=== PATIENT | female | born 1980 | race Caucasian/White ===

== ENCOUNTER 2016-12-08 10:20 | Emergency (ER) | payer OTHER ==
[~2016-12-08] VITALS: Ht 170.2 cm; Wt 77.1 kg
[~2016-12-08 10:20] MED LIST: EFFEXOR XR75 MG PO; ESKALITH300 M3 PO; ZYPREXA10 MG PO
[2016-12-08 10:25] VITALS: BP 111/71
--- NOTE | 2016-12-08 10:25 | NUR ---
PATIENT PRESENTS TO ED WITH C/O DIZZINESS . PT STATES THE DIZZINESS IS INTERMITTENT AND STARTED 2 WEEKS AGO. PT DENIES ANY FAINTING OR LOC . DENIES N/V/D; SKIN IS PINK/WARM/DRY; AAOX4 WITH EVEN AND STEADY GAIT; LUNGS CLEAR BL; HR EVEN AND REGULAR; PT DENIES ANY FEVER, CP, SOB, OR COUGH AT THIS TIME; PATIENT STATES PAIN OF 0/10 AT THIS TIME; VSS; PATIENT POSITIONED FOR COMFORT; HOB ELEVATED; BEDRAILS UP X2; BED DOWN. ER MD MADE AWARE OF PT STATUS.
--- NOTE | 2016-12-08 11:15 | NUR ---
Gwen AT BEDSIDE.
--- NOTE | 2016-12-08 12:50 | NUR ---
Patient discharged with v/s stable. Written and verbal after care instructions given and explained. Patient verbalized understanding. Ambulatory with steady gait. All questions addressed prior to discharge. Advised to follow up with PMD.
[2016-12-08 12:51] VITALS: BP 121/74
== END 2016-12-08 12:50 | disposition home or self-care (01) ==
LOC: MED 10:20
DX: E03.9 Hypothyroidism, unspecified (principal); I10 Essential (primary) hypertension; F17.200 Nicotine dependence, unspecified, uncomplicated

== ENCOUNTER 2019-02-20 10:24 | Inpatient (IN) | payer OTHER ==
[~2019-02-20] VITALS: Ht 170.2 cm; Wt 98.5 kg
[~2019-02-20 10:24] MED LIST changes: -EFFEXOR XR75 MG PO; +ESK300 PO; -ESKALITH300 M3 PO; +OLAN10TA PO; +VENL75CE5 PO; -ZYPREXA10 MG PO
[2019-02-20 10:25] VITALS: BP 128/119
--- NOTE | 2019-02-20 10:35 | NUR ---
BIB SELF. AAO X4 C/O SOB & MIRELLA EYES SWELLING X 3 WEEKS . DENIES PAIN. SEEN BY PCP 02/06/19 FOR GENERALIZED EDEMA ,COPD & REFERRED TO ER. DIAMOND BRISK 3 MM. FULL CLEAR SPEECH. PT DENIES BLURRED VISION, FEVER, N/V. PT HAS STEADY GAIT. HOB UP. BED SIDE RAILS UP X1. ON LOW BED POSITION, LOCKED. ER TO EVALUATE PT.
--- NOTE | 2019-02-20 11:05 | NUR ---
DR MCKINNON AT BEDSIDE FOR PT EVAL
[2019-02-20 11:38] LABS: BASOPHILS # (AUTO) 0.1 K/uL (0.00-0.22); BASOPHILS % (AUTO) 2.3 % (0.0-2.0); EOSINOPHILS # (AUTO) 0.1 K/uL (0-0.4); EOSINOPHILS % (AUTO) 3.5 % (0.0-4.0); HEMATOCRIT 26.2 % (36-48); HEMOGLOBIN 8.2 g/dL (12.0-16.0); LYMPHOCYTES # (AUTO) 0.5 K/uL (2.5-16.5); LYMPHOCYTES % (AUTO) 17.4 % (20.5-51.1); MEAN CORPUSCULAR HEMOGLOBIN 25 pg (27-31); MEAN CORPUSCULAR HGB CONC 32 g/dL (33-37); MEAN CORPUSCULAR VOLUME 78.5 fL (80-94); MONOCYTES # (AUTO) 0.1 K/uL (0.8-1.0); MONOCYTES % (AUTO) 3.8 % (1.7-9.3); NEUTROPHILS # (AUTO) 2.2 K/uL (1.8-7.7); PLATELET COUNT (AUTO) 300 K/uL (140-450); RED BLOOD CELL COUNT(AUTO) 3.33 MIL/uL (4.20-5.40); RED CELL DISTRIBUTION WIDTH 18.6 % (11.6-13.7)
[2019-02-20 11:44] LABS: ANION GAP 9.8 (8-16); CARBON DIOXIDE 30.2 mmol/L (21-32); CREATININE 1.2 mg/dL (0.6-1.3)
[2019-02-20 11:49] LABS: ALBUMIN 4.1 g/dL (3.4-5.0); PROTHROMBIN TIME 10.8 secs (10.8-13.4); TOTAL BILIRUBIN 0.2 mg/dL (0.0-1.0)
--- NOTE | 2019-02-20 11:55 | NUR ---
VITAL SIGN CHECKED. WITHIN NORMAL RANGE. RESP EVEN AND UNLABORED. WILL CONTINUE TO MONITOR. Addendum: 02/21/19 at 0139 by Alayna Puga RN WRONG TIME.
[2019-02-20 11:57] LABS: THYROID STIMULATING HORMONE 149.04 uIU/mL (0.34-3.74)
[2019-02-20 12:06] LABS: APPEARANCE,URINE CLOUDY (CLEAR); BILIRUBIN,URINE NEGATIVE (NEGATIVE); BLOOD, URINE 3+ (NEGATIVE); COLOR,URINE RED (YELLOW); LEUKOCYTE ESTERASE ,URINE TRACE (NEGATIVE); NITRITE, URINE NEGATIVE (NEGATIVE); PH,URINE 6.5 (5.0-9.0); UGLUCOSE NEGATIVE (NEGATIVE)
[2019-02-20 12:23] LABS: RBC,URINE TOO NUMEROUS TO COUN /HPF (0-5)
[2019-02-20 12:24] LABS: WBC,URINE 0-5 /HPF (0-5)
--- NOTE | 2019-02-20 12:52 | NUR ---
multiple attempts to insert iv , unsuccessful---md notified
[2019-02-20] MEDS ORDERED: ONDANSETRON 4 MG/2 ML VIAL IVP PRN (13:25)
[2019-02-20] MEDS ORDERED: HYDROcodone/APAP 5/325 MG 1 TAB TAB PO PRN (13:25)
[2019-02-20] MEDS ORDERED: ALBUTEROL 0.083% 2.5 MG/3 ML NEBU IH PRN (13:25)
[2019-02-20] MEDS ORDERED: MORPHINE SULFATE 4 MG/ML SYR IVP PRN (13:25)
[2019-02-20] MEDS ORDERED: ACETAMINOPHEN 325 MG TAB PO PRN (13:25)
--- NOTE | 2019-02-20 13:47 | NUR ---
PT TAKEN TO THE FLOOR VIA WHEELCHAIR BY HUGH VELA AT THIS TIME
[2019-02-20] MEDS ORDERED: LEVOTHYROXINE 0.1 MG TAB PO SCH (13:53)
--- NOTE | 2019-02-20 13:58 | NUR ---
RECEIVED BED SIDE REPORT FROM SAP BI DEVELOPER. PT TRANSPORTED TO UNIT VIA WHEELCHAIR. ON 2L NC, IN NO RESPIRATORY DISTRESS. PT A/O X4, L AC 24G HEP LOCK, SKIN INTACT, PT STATES SHE IS NOT IN PAIN. BED ALARM ON, WILL CONTINUE TO MONITOR
--- NOTE | 2019-02-20 13:58 | NUR ---
Patient will be admitted to care of Dr Ott. Admited to Med Surg. Will go to room 119 A. Belongings list completed. Report to HUGH Miranda.
[2019-02-20 14:22] VITALS: BP 123/90
--- NOTE | 2019-02-20 16:45 | NUR ---
US ABDOMEN BEING DONE AT BEDSIDE. WILL CONTINUE TO MONITOR
--- NOTE | 2019-02-20 17:15 | NUR ---
CAME TO SPEAK TO PT. ORDERED LASIX AND A VENOUS DOPPLER, ECHO AND US OF THE LIVER TO BE DONE. WILL CONTINUE TO MONITOR
--- NOTE | 2019-02-20 18:06 | NUR ---
PT IS SLEEPING RIGHT NOW COMFORTABLY. CALL LIGHT WITHIN REACH, BED ALARM ON, WILL CONTINUE TO MONITOR
--- NOTE | 2019-02-20 19:39 | NUR ---
ENDORSED PT TO PANEL MACHINE OPERATOR RN. PT IN STABLE CONDITION.
--- NOTE | 2019-02-20 19:40 | NUR ---
RECEIVED BEDSIDE REPORT FROM DAY SHIFT NURSE. NO SOB OR ANY RESP DISTRESS NOTED ON 2L NC. PT A/O X4, IV SITE ON L AC 24G SL, SKIN INTACT, WARM AND DRY TO TOUCH. DENIED ANY PAIN. STANDARD PRECAUTION IN PLACE, BED IN LOW POSITION, CALL LIGHT WITHIN REACH. WILL CONTINUE TO MONITOR
[2019-02-20] MEDS: OLANZapine 5 MG TAB PO SCH (20:48)
--- NOTE | 2019-02-20 20:48 | NUR ---
GIVEN OLANZAPINE MD ORDERED. D/C LASIX AND IV FLUID, NS @ 50MLS/HR ORDERED BY DR. LENA Ross HANG NS FLUID AND NOT GIVEN LASIX MD ORDERED. WILL CONTINUE TO MONITOR.
--- NOTE | 2019-02-20 20:53 | NUR ---
NOTIFIED DR. PAREDES AND RN. SANCHEZ ON CRITICAL ECHO FINDINGS.
[2019-02-20] MEDS ORDERED: FUROSEMIDE 40 MG/4 ML VIAL IVP SCH (21:00)
[2019-02-20] MEDS: NACL 0.9% 1,000 ML IV SCH (21:10)
--- NOTE | 2019-02-20 21:45 | NUR ---
RECEIVED PATIENT ON ROOM AIR, PULSE OX SAT 99%. PATIENT DENIES SOB AT THIS TIME. PRN BREATHING TREATMENT NOT INDICATED. NO RESPIRATORY DISTRESS NOTED. WILL CONTINUE TO MONITOR.
[2019-02-20] MEDS ORDERED: IBUPROFEN 600 MG TAB ONE (22:18)
[2019-02-20] MEDS ORDERED: COLCHICINE 0.6 MG TAB PO SCH (23:00)
[2019-02-20] MEDS ORDERED: IBUPROFEN 600 MG TAB PO SCH (23:00)
--- NOTE | 2019-02-20 23:20 | NUR ---
GIVEN MOTRIN AND COLCHICINE DRBryon ORDERED. PT TOLERATED WELL. WILL CONTINUE TO MONITOR.
--- NOTE | 2019-02-20 23:55 | NUR ---
VITAL SIGN CHECKED. WITHIN NORMAL RANGE. RESP EVEN AND UNLABORED. WILL CONTINUE TO MONITOR.
[2019-02-21] VITALS: BP 131/59
--- NOTE | 2019-02-21 02:15 | NUR ---
PT SLEEPING IN BED. NO ACUTE DISTRESS NOTED. BREATHING EVEN AND UNLABORED. BED IN LOW POSITION, CALL LIGHT WITHIN REACH.
[2019-02-21 04:00] VITALS: BP 123/77
--- NOTE | 2019-02-21 04:00 | NUR ---
VS CHECKED. WITHIN NORMAL RANGE. PT AMBULATE TO BATHROOM TO URINATE AFTER VS CHECKED. ASSIST PT TO BACK TO BED. COVER PT WITH BLANKET. BED IN LOW POSITION. CALL LIGHT WITHIN REACH.
[2019-02-21] MEDS: LEVOTHYROXINE 0.1 MG TAB PO SCH (05:48)
--- NOTE | 2019-02-21 05:48 | NUR ---
GIVEN SYNTHROID MD ORDERED. PT TOLERATED WELL.
[2019-02-21 06:26] LABS: BASOPHILS # (AUTO) 0.1 K/uL (0.00-0.22); BASOPHILS % (AUTO) 1.5 % (0.0-2.0); EOSINOPHILS # (AUTO) 0.1 K/uL (0-0.4); EOSINOPHILS % (AUTO) 2.9 % (0.0-4.0); HEMATOCRIT 27.5 % (36-48); HEMOGLOBIN 8.5 g/dL (12.0-16.0); LYMPHOCYTES # (AUTO) 0.8 K/uL (2.5-16.5); MEAN CORPUSCULAR HEMOGLOBIN 24 pg (27-31); MEAN CORPUSCULAR HGB CONC 31 g/dL (33-37); MEAN CORPUSCULAR VOLUME 78.7 fL (80-94); MONOCYTES # (AUTO) 0.2 K/uL (0.8-1.0); MONOCYTES % (AUTO) 5.4 % (1.7-9.3); NEUTROPHILS # (AUTO) 2.6 K/uL (1.8-7.7); NEUTROPHILS % (AUTO) 69.2 % (42.2-75.2); PLATELET COUNT (AUTO) 277 K/uL (140-450); RED BLOOD CELL COUNT(AUTO) 3.49 MIL/uL (4.20-5.40); RED CELL DISTRIBUTION WIDTH 18.8 % (11.6-13.7); WHITE BLOOD COUNT (AUTO) 3.7 K/uL (4.8-10.8)
[2019-02-21 06:33] LABS: ANION GAP 11.2 (8-16); CARBON DIOXIDE 29.6 mmol/L (21-32); POTASSIUM 3.8 mmol/L (3.5-5.1)
[2019-02-21 06:40] LABS: MAGNESIUM 2.2 mg/dL (1.8-2.4); PHOSPHORUS 2.8 mg/dL (2.5-4.9)
--- NOTE | 2019-02-21 07:20 | NUR ---
ENDORSED PT TO DAY SHIFT NURSE. PT IN STABLE CONDITION.
--- NOTE | 2019-02-21 07:22 | NUR ---
RECEIVED BED SIDE REPORT FROM TRANS ROUTER RN. PT A/O X3, PT ABLE TO AMBULATE WITH A STEADY GAIT, HAS NS RUNNING AT 50CC/HR. WILL CONTINUE TO MONITOR
[2019-02-21 08:00] VITALS: BP 133/95
--- NOTE | 2019-02-21 08:02 | NUR ---
PATIENT HAS BEEN SCREENED AND CATEGORIZED MODERATE NUTRITION RISK. PATIENT WILL BE SEEN WITHIN 3-5 DAYS OF ADMISSION. 02/23/[address]
[2019-02-21] MEDS: OLANZapine 5 MG TAB PO SCH ×2 (09:03→20:42)
[2019-02-21] MEDS: IBUPROFEN 600 MG TAB PO SCH ×3 (09:04→18:55)
[2019-02-21] MEDS: COLCHICINE 0.6 MG TAB PO SCH ×2 (09:04→20:42)
[2019-02-21] MEDS: VENLAFAXINE XR 75 MG CAPER PO SCH (09:04)
[2019-02-21] MEDS: ENOXAPARIN 40 MG/0.4 ML SYR SUBQ SCH (09:05)
[2019-02-21 12:00] VITALS: BP 133/95
--- NOTE | 2019-02-21 13:14 | NUR ---
PT RESTING COMFORTABLY IN BED. DENIES CHEST PAIN, PALPITATIONS OR SOB. WILL CONTINUE TO MONITOR.
[2019-02-21 16:00] VITALS: BP 122/84
[2019-02-21] MEDS: NACL 0.9% 1,000 ML IV SCH (17:10)
--- NOTE | 2019-02-21 19:15 | NUR ---
ENDORSED PT TO BASE BRANDER RN. PT IN STABLE CONDITION
--- NOTE | 2019-02-21 19:20 | NUR ---
RECEIVED PT SLEEPING, EASILY AROUSABLE, AA0X3, ABLE TO MAKE NEEDS KNOWN, VITAL SIGNS STABLE, SR/SB ON TELE, ASYMPTOMATIC, DENIES ANY PAIN OR SOB, IVF INFUSING WELL, PLAN OF CARE DISCUSSED, SAFETY MEASURES IN PLACE, CALL LIGHT WITHIN REACH.
[2019-02-21 20:00] VITALS: BP 132/78
--- NOTE | 2019-02-21 20:55 | NUR ---
DR Ivan PAREDES IS HERE AND SAW THE PT, WITH NEW ORDER FOR REPEAT ECHO FOR TOMORROW.
--- NOTE | 2019-02-21 21:28 | NUR ---
PT AMBULATED TO BR WITH STEADY GAIT, VOIDED FREELY, PT BACK TO BED, DENIES ANY PAIN,DIZZINESS OR SOB, ALL NEEDS ATTENDED.
[2019-02-22] VITALS: BP 124/81
--- NOTE | 2019-02-22 | NUR ---
PT SLEEPING, EASILY AROUSABLE TO VERBAL STIMULI, VITAL SIGNS STABLE, SB ON TELE, ASYMPTOMATIC, DENIES ANY PAIN AND SOB, IVF INFUSING WELL, CONTINUE TO MONITOR CLOSELY.
[2019-02-22 04:00] VITALS: BP 130/76
--- NOTE | 2019-02-22 04:00 | NUR ---
PT AWAKE, JUST GOT BACK FROM BR, VITAL SIGNS STABLE, DENIES ANY PAIN OR SOB, IVF INFUSING WELL, MONITORED CLOSELY.
[2019-02-22] MEDS: LEVOTHYROXINE 0.1 MG TAB PO SCH (05:54)
--- NOTE | 2019-02-22 06:05 | NUR ---
DUE SYNTHROID PO GIVEN, NO BM SINCE TUESDAY, PRUNE JUICE PROVIDED, TOLERATED WELL, PT DENIES ANY PAIN, LIGHTHEADEDNESS OR SOB, IVF INFUSING WELL, MONITORED CLOSELY.
--- NOTE | 2019-02-22 07:18 | NUR ---
PT AWAKE, NO DISTRESS NOTED, REPORT GIVEN TO HUGH CHRISTIANSON FOR CONTINUITY OF CARE.
--- NOTE | 2019-02-22 07:19 | NUR ---
RECEIVED BEDSIDE REPORT FROM HUGH TOMLINSON. PT STABLE, AWAKE, ALERT AND ORIENTED X4. NO SIGNS OF DISTRESS NOTED. DENIES PAIN OR SOB. NO REDNESS, SWELLING, OR INFLAMMATION NOTED ON IV SITE. CALL PETTY WITHIN REACH. BED IN LOWEST POSITION. SAFETY MEASURES IN PLACE. PLAN OF CARE REVIEWED.
[2019-02-22 07:40] LABS: BASOPHILS # (AUTO) 0.1 K/uL (0.00-0.22); BASOPHILS % (AUTO) 1.4 % (0.0-2.0); EOSINOPHILS # (AUTO) 0.1 K/uL (0-0.4); EOSINOPHILS % (AUTO) 2.1 % (0.0-4.0); HEMATOCRIT 26.5 % (36-48); HEMOGLOBIN 8.2 g/dL (12.0-16.0); LYMPHOCYTES # (AUTO) 0.7 K/uL (2.5-16.5); LYMPHOCYTES % (AUTO) 15.1 % (20.5-51.1); MEAN CORPUSCULAR HEMOGLOBIN 24 pg (27-31); MEAN CORPUSCULAR HGB CONC 31 g/dL (33-37); MEAN CORPUSCULAR VOLUME 79.2 fL (80-94); MONOCYTES # (AUTO) 0.2 K/uL (0.8-1.0); MONOCYTES % (AUTO) 3.9 % (1.7-9.3); NEUTROPHILS # (AUTO) 3.4 K/uL (1.8-7.7); NEUTROPHILS % (AUTO) 77.5 % (42.2-75.2); PLATELET COUNT (AUTO) 293 K/uL (140-450); RED BLOOD CELL COUNT(AUTO) 3.35 MIL/uL (4.20-5.40); RED CELL DISTRIBUTION WIDTH 18.7 % (11.6-13.7); WHITE BLOOD COUNT (AUTO) 4.4 K/uL (4.8-10.8)
[2019-02-22 08:00] VITALS: BP 132/85
[2019-02-22 08:19] LABS: ANION GAP 13.7 (8-16); CARBON DIOXIDE 27.2 mmol/L (21-32); POTASSIUM 3.9 mmol/L (3.5-5.1)
[2019-02-22 08:23] LABS: PHOSPHORUS 2.9 mg/dL (2.5-4.9)
--- NOTE | 2019-02-22 09:34 | NUR ---
PT C/O NOT HAVING BM FOR 4 DAYS. RECEIVED TELEPHONE ORDERS FROM DR PIÑA FOR COLACE 100MG PO BID, AND SENNA 2 TABS (8.6 MG EACH TAB) PO QHS. WILL PUT IN ORDER.
[2019-02-22] MEDS: VENLAFAXINE XR 75 MG CAPER PO SCH (10:12)
[2019-02-22] MEDS: COLCHICINE 0.6 MG TAB PO SCH ×2 (10:12→20:21)
[2019-02-22] MEDS: IBUPROFEN 600 MG TAB PO SCH ×3 (10:12→17:22)
[2019-02-22] MEDS: OLANZapine 5 MG TAB PO SCH ×2 (10:12→20:21)
[2019-02-22] MEDS: ENOXAPARIN 40 MG/0.4 ML SYR SUBQ SCH (10:15)
--- NOTE | 2019-02-22 10:20 | NUR ---
ADMINISTERED SCHEDULED MEDICATIONS, PT TOLERATED WELL. NO OTHER NEEDS AT THIS TIME.
[2019-02-22 12:00] VITALS: BP 155/84
--- NOTE | 2019-02-22 12:10 | NUR ---
VITAL SIGNS TAKEN, PT STABLE. PT DENIES ANY PAIN OR SOB.
[2019-02-22] MEDS: NACL 0.9% 1,000 ML IV SCH (13:10)
--- NOTE | 2019-02-22 13:19 | NUR ---
ADMINISTERED SCHEDULED MEDICATION, PT TOLERATED WELL. NO OTHER NEEDS AT THIS TIME.
--- NOTE | 2019-02-22 13:37 | NUR ---
CALLED OFFICE OF DR NILSON WHEELER [phone] SPOKE TO LEIA, FOLLOW-UP APPOINTMENT MADE ON 02/27/19 AT 930AM AT [facility] [place] [address]. COPY OF APPOINTMENT DETAILS GIVEN TO PATIENT, INSTRUCTED PATIENT TO BRING DISCHARGE PAPERS FROM THE HOSPITAL DURING THE VISIT, PATIENT VERBALIZED UNDERSTANDING. HUGH TILLEY NOTIFIED.
--- NOTE | 2019-02-22 14:20 | NUR ---
DR PIÑA AT THE BEDSIDE. Addendum: 02/22/19 at 1436 by Katarzyna Jacobo RN PT STABLE, RESTING IN BED. NO OTHER NEEDS AT THIS TIME.
--- NOTE | 2019-02-22 15:01 | NUR ---
I MET PATIENT AT BEDSIDE AND EXPLAINED TO PATIENT THAT I WILL OBTAIN AND VERIFY INFORMATION WITH HER, AND PATIENT AGREED. PATIENT LIVES AT [facility] FOR 5 YEARS AND PLANNING TO RETURN THERE UPON DISCHARGE. PATIENT STATED THAT SHE DOES NOT HAVE ANY FAMILY MEMBERS HERE AND EVERYONE LIVES IN [facility]. PATIENT IS INDEPENDENT WITH ADLS, AND SHE GETS HELP FROM THE NURSE IN THE GUEST HOME TO ADMINISTER HER DAILY MEDS. THE [facility] HOME IS ALSO RESPONSIBLE OF PICKING UP AND PREPARING ALL HER MEDS. ACCORDING TO PATIENT, THE DOCTORS COMES IN THE HOME IN A REGULAR VISIT TO DO CHECK UP. FOR ANY TRANSPORTATION NEED, THE [facility] IS ALSO PROVIDING THE SERVICES. PATIENT HAS NO ADVANCE DIRECTIVES AT THIS TIME.PATIENT WAS NOT USING ANY DME AT THE [facility] PRIOR TO HOSPITALIZATION. PATIENT HAS NO CONCERNS AND QUESTIONS AT THIS TIME. INSTRUCTED PATIENT TO SHOW ALL DISCHARGE PAPERS WHEN PCP VISITS THE HOME, VERBALIZED UNDERSTANDING. EMPHASIZED TO PATIENT TO LET US KNOW IF NEEDED HELP OR IF THERE IS ANY QUESTIONS AND CONCERNS WHILE SHE IS HERE IN THE HOSPITAL.
[2019-02-22 16:00] VITALS: BP 117/63
--- NOTE | 2019-02-22 16:30 | NUR ---
VITAL SIGNS TAKEN, PT STABLE. NO OTHER NEEDS AT THIS TIME.
--- NOTE | 2019-02-22 17:24 | NUR ---
ADMINISTERED SCHEDULED MEDICATION, PT TOLERATED WELL. NO OTHER NEEDS AT THIS TIME.
--- NOTE | 2019-02-22 18:50 | NUR ---
REINSERTED ANOTHER IV ON THE RIGHT FA 22G. PT TOLERATED WELL.
--- NOTE | 2019-02-22 19:10 | NUR ---
ENDORSED PT TO HUGH TOMLINSON FOR CONTINUITY OF CARE. PT STABLE.
--- NOTE | 2019-02-22 19:15 | NUR ---
RECEIVED PT AWAKE SITTING ON SIDE OF BED EATING DINNER, TOLERATING WELL, VITAL SIGNS STABLE, DENIES ANY PAIN OR SOB, IVF INFUSING WELL, PLAN OF CARE DISCUSSED, SAFETY MEASURES IN PLACE, CALL LIGHT WITHIN REACH.
[2019-02-22 20:00] VITALS: BP 115/80
[2019-02-22] MEDS: DOCUSATE SODIUM 100 MG GELCAP PO SCH (20:21)
--- NOTE | 2019-02-22 20:30 | NUR ---
DUE MEDS ADMINISTERED, IVF INFUSING WELL, ALL NEEDS ATTENDED.
[2019-02-22] MEDS ORDERED: SENNA 8.6 MG TAB PO SCH (21:00)
--- NOTE | 2019-02-22 22:20 | NUR ---
SEEN PT AMBULATING BACK FROM TOILET WITH STEADY GAIT, DENIES SOB OR PAIN, PT WENT BACK TO SLEEP, MONITORED CLOSELY.
--- NOTE | 2019-02-22 23:50 | NUR ---
PT SLEEPING, AROUSABLE TO VERBAL STIMULI, VITAL SIGNS STABLE, IVF INFUSING WELL, CONTINUE TO MONITOR CLOSELY.
[2019-02-23] MEDS: NACL 0.9% 1,000 ML IV SCH ×2 (00:41→09:10)
[2019-02-23 01:45] VITALS: BP 120/72
--- NOTE | 2019-02-23 04:00 | NUR ---
PT SLEEPING, EASILY AROUSABLE, VITAL SIGNS STABLE, DENIES PAIN OR SOB, IVF INFUSING WELL, MONITORED CLOSELY.
[2019-02-23] MEDS: LEVOTHYROXINE 0.1 MG TAB PO SCH (05:46)
--- NOTE | 2019-02-23 05:59 | NUR ---
PT AWAKE, DUE PO SYNTHROID ADMINISTERED, NO DISTRESS NOTED, CONTINUE TO MONITOR CLOSELY.
[2019-02-23 06:24] VITALS: BP 106/80
--- NOTE | 2019-02-23 07:12 | NUR ---
PT AWAKE, NO SIGNS OF DISTRESS, REPORT GIVEN TO SAMMY FOR CONTINUITY OF CARE.
[2019-02-23 07:51] LABS: BASOPHILS # (AUTO) 0.1 K/uL (0.00-0.22); BASOPHILS % (AUTO) 2.2 % (0.0-2.0); EOSINOPHILS # (AUTO) 0.1 K/uL (0-0.4); EOSINOPHILS % (AUTO) 3.7 % (0.0-4.0); HEMATOCRIT 26.2 % (36-48); HEMOGLOBIN 8.2 g/dL (12.0-16.0); LYMPHOCYTES # (AUTO) 0.6 K/uL (2.5-16.5); LYMPHOCYTES % (AUTO) 18.2 % (20.5-51.1); MEAN CORPUSCULAR HEMOGLOBIN 25 pg (27-31); MEAN CORPUSCULAR HGB CONC 31 g/dL (33-37); MEAN CORPUSCULAR VOLUME 79.8 fL (80-94); MONOCYTES # (AUTO) 0.2 K/uL (0.8-1.0); MONOCYTES % (AUTO) 5.4 % (1.7-9.3); NEUTROPHILS # (AUTO) 2.4 K/uL (1.8-7.7); NEUTROPHILS % (AUTO) 70.5 % (42.2-75.2); PLATELET COUNT (AUTO) 288 K/uL (140-450); RED BLOOD CELL COUNT(AUTO) 3.28 MIL/uL (4.20-5.40); RED CELL DISTRIBUTION WIDTH 18.8 % (11.6-13.7); WHITE BLOOD COUNT (AUTO) 3.4 K/uL (4.8-10.8)
[2019-02-23 08:00] VITALS: BP 121/79
[2019-02-23 08:43] LABS: ANION GAP 13.4 (8-16); CARBON DIOXIDE 27.4 mmol/L (21-32); POTASSIUM 3.8 mmol/L (3.5-5.1)
[2019-02-23 08:51] LABS: MAGNESIUM 2.2 mg/dL (1.8-2.4); PHOSPHORUS 3.6 mg/dL (2.5-4.9)
[2019-02-23] MEDS: COLCHICINE 0.6 MG TAB PO SCH (09:30)
[2019-02-23] MEDS: OLANZapine 5 MG TAB PO SCH (09:30)
[2019-02-23] MEDS: DOCUSATE SODIUM 100 MG GELCAP PO SCH (09:30)
[2019-02-23] MEDS: VENLAFAXINE XR 75 MG CAPER PO SCH (09:30)
[2019-02-23] MEDS: IBUPROFEN 600 MG TAB PO SCH ×2 (09:31→13:11)
[2019-02-23] MEDS: ENOXAPARIN 40 MG/0.4 ML SYR SUBQ SCH (09:35)
--- NOTE | 2019-02-23 09:40 | NUR ---
ADMINISTERED SCHEDULED MEDICATIONS, PT TOLERATED WELL. NO OTHER NEEDS AT THIS TIME.
--- NOTE | 2019-02-23 10:52 | NUR ---
RECEIVED TELEPHONE ORDER FROM DR PIÑA FOR CASE MANAGEMENT TO ARRANGE PT'S TRANSFER TO [facility] FOR A PERICARDIOCENTESIS. DR HOLCOMB WILL BE THE ACCEPTING PHYSICIAN. WILL PUT ORDER IN.
--- NOTE | 2019-02-23 11:01 | NUR ---
LEFT A MESSAGE TO PACE ANALYST SHELLI REGARDING DR PIÑA'S ORDER FOR PT'S TRANSFER TO [facility].
[2019-02-23 12:00] VITALS: BP 107/73
--- NOTE | 2019-02-23 12:10 | NUR ---
VITAL SIGNS TAKEN, PT STABLE. NO OTHER NEEDS AT THIS TIME.
--- NOTE | 2019-02-23 12:52 | NUR ---
Spoke to Dariela at [facility] model and pattern supervisor [phone] and informed her that Tele bed needed per Dr. Lomeli and Dr. Rahman for transfer for pericardiocentesis that Dr. Hinkle will perform tomorrow. Dariela house sup aware and will call later to give a bed. All papers faxed to Dariela and will call the floor MST to give report and bed assignment. Raimundo RN aware.
--- NOTE | 2019-02-23 13:12 | NUR ---
ADMINISTERED SCHEDULED MEDICATION, PT TOLERATED WELL. NO OTHER NEEDS AT THIS TIME.
--- NOTE | 2019-02-23 13:50 | NUR ---
SPOKE TO DOREEN FROM [facility]. PATIENT WILL BE GOING TO ROOM 331A UNDER DR HOLCOMB AND DR PAREDES. PATIENT NEEDS TO GO TO THE ER FIRST. REPORT TO BE GIVEN TO THE CHARGE NURSE TIFFANY AT [phone]. SAMMY TILLEY RN AWARE
--- NOTE | 2019-02-23 14:15 | NUR ---
SPOKE TO [facility] STAFF AT [phone]. AUTHORIZATION NUMBER IS [id number]. THEY WILL CHARGING BOARD OPERATOR THE PATIENT AT 3PM. RN SAMMY TILLEY IS AWARE. [facility] STAFF AWARE THAT PATIENT NEEDS TO GO TO THE ER FIRST.
--- NOTE | 2019-02-23 15:07 | NUR ---
GAVE REPORT TO HUGH DAVIS FROM [facility].
[2019-02-23 15:16] LABS: ANTI DOUBLE STRANDED DNA AB 1 IU/mL (0-9)
--- NOTE | 2019-02-23 15:25 | NUR ---
D/C INSTRUCTIONS AND PAPERWORK GIVEN, PT VERBALIZED UNDERSTANDING. QUESTIONS AND CONCERNS WERE ADDRESSED. D/C IV ON LEFT AC 24G, CATHETER TIP INTACT, BLEEDING CONTROLLED. LEFT IV IN PLACE ON RIGHT FA 22G PER HUGH DAVIS'S REQUEST FROM [facility]. PT STABLE, AAOX4, COMMUNICATES APPROPRIATELY WITH STAFF. PT AMBULATES WITH STEADY GAIT. SKIN INTACT. PER PT'S REQUEST, PT WANTS TO RECEIVE PNEUMONIA VACCINE UPON DISCHARGE FROM [facility], ENDORSED TO HUGH DAVIS. PT TOOK ALL BELONGINGS WITH HER. REPORT GIVEN TO JESSICA. PT PICKED UP BY JESSICA. Addendum: 02/23/19 at 1655 by Katarzyna Jacobo RN PT PICKED UP BY JESSICA TO BE TRANSFERRED TO [facility]. MADE JESSICA AWARE TO TAKE PT TO THE ER FIRST AND NOT DIRECTLY IN THE UNIT PER HUGH DAVIS'S REQUEST.
[2019-02-23] MEDS ORDERED: IBUP-2213 PO (15:40)
[2019-02-23] MEDS ORDERED: DOCU-299 PO (15:40)
[2019-02-23] MEDS ORDERED: SYN.1 PO (15:40)
[2019-02-23] MEDS ORDERED: ACET-1182 PO (15:40)
[2019-02-23] MEDS ORDERED: PRON IH (15:40)
[2019-02-23] MEDS ORDERED: COL.6 PO (15:40)
[2019-02-23] MEDS ORDERED: ACET-9525 PO (15:40)
--- NOTE | 2019-02-23 16:30 | NUR ---
FAXED PT'S MEDICATION RECONCILIATION AND HOME MEDICATIONS TO TIFFANY (CHARGE NURSE) AT [facility]. FAX NUMBER: [phone]
== END 2019-02-23 15:25 | disposition short-term general hospital (02) | DRG 427 ==
LOC: MED 10:24 → MTU 13:24
PROVIDERS: ADMIT Internal Medicine Pulmonary Disease; ATTEND Internal Medicine Pulmonary Disease
DX: E03.9 Hypothyroidism, unspecified (principal); I31.4 Cardiac tamponade; I31.3 Pericardial effusion (noninflammatory); F20.9 Schizophrenia, unspecified; D50.9 Iron deficiency anemia, unspecified; F17.210 Nicotine dependence, cigarettes, uncomplicated; D72.819 Decreased white blood cell count, unspecified; E05.90 Thyrotoxicosis, unspecified without thyrotoxic crisis or storm; J44.9 Chronic obstructive pulmonary disease, unspecified; I10 Essential (primary) hypertension; F31.9 Bipolar disorder, unspecified
CPT/HCPCS: 36415; 36600; 71045; 76700; 80048; 80053; 80178; 81001; 81025; 82803; 83735; 83880; 84100; 84439; 84443; 84484; 85025; 85610; 85613; 85730; 86038; 86430; 87081; 93005; 93308; 93970; 97161-GP; 99285; J1650; J1940; J7030; J7120; J7613; Q0092

== ENCOUNTER 2021-03-30 10:47 | Emergency (ER) | payer OTHER ==
[~2021-03-30 10:47] MED LIST changes: +ACET-1182 PO; +ACET-9525 PO; +COLC-30 PO; +DOCU-299 PO; -ESK300 PO; +IBUP-2213 PO; +PRON IH; +SYN.1 PO
[2021-03-30 13:24] VITALS: BP 158/118
--- NOTE | 2021-03-30 13:26 | NUR ---
DPatient discharged with v/s stable. Written and verbal after care instructions given and explained. Patient verbalized understanding. Ambulatory with steady gait. All questions addressed prior to discharge. Advised to follow up with PMD.
== END 2021-03-30 13:25 | disposition home or self-care (01) ==
LOC: MED 10:47
DX: A15.9 Respiratory tuberculosis unspecified (principal); I10 Essential (primary) hypertension; E07.9 Disorder of thyroid, unspecified; F32.9 Major depressive disorder, single episode, unspecified; Z95.1 Presence of aortocoronary bypass graft; Z79.899 Other long term (current) drug therapy
CPT/HCPCS: 71045; 99283